=== PATIENT | female | born 1965 | race Caucasian/White ===

== ENCOUNTER 2019-11-14 13:26 | Outpatient (CLI) | payer OTHER, SELFPAY ==
--- NOTE | 2019-11-18 10:05 | ONC CON_ITS ---
Dr. Hayes New Patient Note Patient: Vicki Cain Unit #: [id number]: 1965 Dicatated By: Philly Hayes M.D.Date of Visit: Nov 14, 2019 Onc MED New Patient/Consult Referring Physician: Referred Self History of Present Illness: Ms. Vicki Cain, is a 54-year-old female with a history of neuroendocrine tumor diagnosed on September 24, 2017 per liver biopsy subsequently underwent fine-needle aspiration of pancreatic tail mass seen as incidental finding on MRI scan of spine done for chronic back pain. 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 daily and within few days she developed extensive skin rash, everolimus was put on hold and she was treated symptomatically with steroids and antihistaminic with that her rash improved, later on she was started on reduced dose everolimus 5 mg p.o. daily, which she tolerated well without any toxicity including skin rash till September 2019, at that time she removed from [place] to [facility]. And during this time patient ran out of her prescription but she had bottle of previously prescribed everolimus 10 mg, while waiting for establishing care here in [place], patient started taking everolimus 10 mg p.o. daily and should took it for 3 weeks as recommended earlier e.g. 3 weeks on 1 week off, on last day of 3-week course of everolimus 10 mg p.o. daily on September 29, 2019,, she developed skin rash again and this time she noted her everolimus was, in fact, . With symptomatic treatment her rash improved but some left under her breast, now is improving too. Patient denies any shortness of breath during this skin reaction but did notice blisters in her mouth. Patient denies any shortness of breath, wheezing, or skin rash, or diarrhea she denies smoking but drinks alcohol occasionally.. Denies any weight loss, denies any nausea or vomiting denies any headaches blurred vision double vision, denies any melena or hematochezia, denies any jaundice. Past Medical History: Ms. Cain's medical history consists of arthritis, degenerative disease of the spine, migraine headaches, and postmenopausal. Past Surgical History: Ms. Cain's surgical/procedural history consists of hysterectomy and left shoulder repair. Medications: Afinitor 1 Tablet (of 5 mg) Oral q 3 weeks, ALPRAZolam 1 Tablet (of 0.5 mg) Oral b.i.d. PRN, Citalopram Hydrobromide 1 Tablet (of 40 mg) Oral daily, Magnesium 1 Capsule (of 500 mg) Oral daily, Rizatriptan Benzoate 1 Tablet (of 10 mg) Oral daily, Rosuvastatin Calcium 1 Tablet (of 20 mg) Oral daily, Super B-50 Complex 1 Capsule Oral daily, valACYclovir HCl 1 Tablet (of 1 g) Oral b.i.d. Allergies: HYDROcodone-Acetaminophen, oxyCODONE HCl, Sulfa Antibiotics, and traMADol HCl. Social History: Ms. Cain is and she is an unknown. Ms. Cain quit smoking 30 years ago but had smoked for 1 year. She is a former drinker. Ms. Cain reports the following support systems: lives with spouse, significant other, family, or friends, lives in own house, supportive family/friends willing to assist with needs, and adequate transportation available for expected visits. Her diet consists of regular meals. She indicates her activity level as: regular exercise. Family History: Ms. Cain's mother is alive. Ms. Cain's father at age 65: lung cancer. Ms. Cain's maternal grandmother is : rectal cancer. Review Of Symptoms: Constitutional - Appetite is good and weight has increased. No fever, night sweats. Positive for hot flashes. Energy level is fair, ENMT - No sinus congestion/drainage. No mouth sores. No sore throat or difficulty swallowing, Hematologic/Lymphatic - No abnormal bruising or bleeding, Respiratory - Occasional shortness of breath. No cough. No pleuritic pain or hemoptysis, Cardiovascular - No angina pain. No palpitations, Gastrointestinal - No nausea or vomiting. No heartburn or acid reflux. Positive for diarrhea, no constipation. No blood in the stool or black stools, Genitourinary (F) - No dysuria or hematuria. No urinary frequency. No urgency or incontinence, Musculoskeletal - Positive for joint and back pain, Neurologic - Positive for headache, no dizziness. No numbness or tingling. No other focal neurologic symptoms, Psychiatric - Positive for anxiety. Vital Signs: Performed on Nov 14, 2019 13:55: 0, 37.16 (HIGH), 1.78 sq.m, 59.00 in, 97 %, 98 /min, 24 /min, 105/70 mm(hg), 98.6 F, and 184.0 lbs (HIGH). Performance Status: 0 - Fully active, able to carry on all predisease activities without restrictions. (ECOG) Physical Examination: ENMT - No mouth sores, no thrush, no jaundice, Respiratory - Lungs are clear, Cardiovascular - Regular rate and rhythm of heart, Abdomen - Soft, bowel sounds present, Extremities - No visible edema. Lab/Imaging: Most recent lab results are not available for this patient. 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 daily in December 2017, patient developed severe skin rash, which was treated with symptomatically with steroid and antihistaminic followed by reduced dose everolimus 5 mg p.o. daily without any problem till September 2019, when she moved to [place], [place] from [place], during that time, patient ran out of prescription for everolimus 5 mg p.o. daily but had bottle of previously prescribed everolimus 10 mg, which she took for 3 weeks till September 28, 2017 when she developed severe skin rash and mouth sores but no shortness of breath, later on patient realized her everolimus was , she was treated symptomatically with steroid and antihistaminic responded well.^ ]Follow-up PET scan done on January 20, 2019 showed unchanged FDG avid pancreatic tail mass, unchanged multiple bilobar hepatic metastasis. 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 daily 3 weeks on 1 week off and established intolerance to everolimus 10 mg p.o. daily. Being a young patient, no significant comorbidity, we would explore clinical trial if available so we will refer her to neuroendocrine oncology at [facility] for evaluation for clinical trial, if available. In the meantime we will continue to hold everolimus. Indicates there is no clinical trial available , in that case we will consider restarting her on everolimus 5 mg p.o. daily 3 weeks on 1 week off unless neuroendocrine oncology clinic has other suggestions. If skin rash under her bilateral breast continue to persist then will refer her to dermatology for evaluation. Patient return to clinic 1 week after her visit to [place]. Signed By: Philly Hayes M.D. <<Signature on File>>
== END 2019-11-14 13:27 | disposition home or self-care (01) ==
LOC: ONCMED 13:35
PROVIDERS: Visit Provider Internal Medicine Hematology & Oncology
DX: C7A.8 Other malignant neuroendocrine tumors (principal); C25.4 Malignant neoplasm of endocrine pancreas; C7B.8 Other secondary neuroendocrine tumors; R21 Rash and other nonspecific skin eruption; Z87.891 Personal history of nicotine dependence; Z79.899 Other long term (current) drug therapy
CPT/HCPCS: 99203

== ENCOUNTER → 2019-12-12 13:54 | Outpatient (BNVA) | payer OTHER, SELFPAY | PROVIDERS: Referring Provider Internal Medicine Hematology & Oncology; Visit Provider Dermatology | DX: C7A.8 Other malignant neuroendocrine tumors (principal); R21 Rash and other nonspecific skin eruption | CPT/HCPCS: 11104; 88304; 88305; 88312; 88341; 88342; 99203; 99204 ==

== ENCOUNTER → 2019-12-29 15:52 | Outpatient (BNVA) | payer OTHER, SELFPAY | PROVIDERS: Visit Provider Dermatology | DX: L27.0 Generalized skin eruption due to drugs and medicaments taken internally (principal); Z48.02 Encounter for removal of sutures | CPT/HCPCS: 99213 ==

== ENCOUNTER 2020-12-28 08:18 | Outpatient (CLI) | payer MEDICARE, SELFPAY ==
[2020-12-28 09:25] LABS: Basophils # 0.1 10^3/uL (0.0-0.1); Basophils % 1.6 %; Eosinophils # 0.4 10^3/uL (0.0-0.8); Eosinophils % 7.1 %; Hematocrit 43.9 % (37.0-47.0); Lymphocytes # 1.3 10^3/uL (0.8-4.8); Lymphocytes % 26.4 %; Mean Corpuscular HGB Conc 31.9 g/dL (30.0-36.0); Mean Corpuscular Hemoglobin 27.5 pg (28.0-34.0); Mean Corpuscular Volume 86.1 fl (81-99); Mean Platelet Volume 9.1 fL (7.4-10.4); Monocytes # 0.4 10^3/uL (0.2-0.9); Monocytes % 8.9 %; Neutrophils # 2.73 10^3/uL (1.8-7.7); Neutrophils % 55.6 %; Nucleated Red Blood Cells % 0 %; Platelet Count 414 10^3/cmm (130-400); Red Cell Distribution Width 16.6 % (12.1-15.1); White Blood Count 4.9 10^3/uL (4.0-10.0)
[2020-12-28 09:26] LABS: Alanine Aminotransferase 11 U/L (0-33); Alkaline Phosphatase 172 IU/L (35-105); Anion Gap 16.3 (5-19); Aspartate Amino Transferase 20 U/L (0-32); Blood Urea Nitrogen 12 mg/dL (6-20); Carbon Dioxide 23 mmol/L (22-29); Chloride 102 mmol/L (98-107); Globulin 3.2 g/dL (1.3-4.6); Glomerular Filtration Rate 104.2 mL/min (90-130); Glucose 91 mg/dL (65-115); Osmolality Calculated 283 mOsm/kg (285-295); Potassium 4.3 mmol/L (3.5-5.1); Sodium 137 mmol/L (136-145); Total Bilirubin 0.3 mg/dL (0.15-1.2); Total Protein 7.2 g/dL (6.6-8.7)
--- NOTE | 2020-12-28 10:27 | ONC FU_ITS ---
Dr. Hayes follow up note Patient: Vicki Cain Unit #: [id number]: 1965 Dicatated By: Philly Hayes M.D.Date of Visit:Dec 28, 2020 Onc Med Follow-up/Prog Note History of Present Illness: Ms. Vicki Cain, is a 55-year-old female with a history of neuroendocrine tumor diagnosed on September 24, 2017 per liver biopsy subsequently underwent fine-needle aspiration of pancreatic tail mass seen as incidental finding on MRI scan of spine done for chronic back pain. 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 daily and within few days she developed extensive skin rash, everolimus was put on hold and she was treated symptomatically with steroids and antihistaminic with that her rash improved, later on she was started on reduced dose everolimus 5 mg p.o. daily, which she tolerated well without any toxicity including skin rash till September 2019, at that time she removed from [place] to [facility]. And during this time patient ran out of her prescription but she had bottle of previously prescribed everolimus 10 mg, while waiting for establishing care here in [place], patient started taking everolimus 10 mg p.o. daily and should took it for 3 weeks as recommended earlier e.g. 3 weeks on 1 week off, on last day of 3-week course of everolimus 10 mg p.o. daily on September 29, 2019,, she developed skin rash again and this time she noted her everolimus was, in fact, . With symptomatic treatment her rash improved but some left under her breast, now is improving too. Patient denies any shortness of breath during this skin reaction but did notice blisters in her mouth. Patient denies any shortness of breath, wheezing, or skin rash, or diarrhea she denies smoking but drinks alcohol occasionally.. Denies any weight loss, denies any nausea or vomiting denies any headaches blurred vision double vision, denies any melena or hematochezia, denies any jaundice. Patient was referred to [facility] for evaluation for clinical trial, patient was seen on February 28, 2020, at that patient underwent dotatate CT PET scan as well as 24-hour urine for 5-HIAA, serotonin and chromogranin level and NexGen sequencing, she was advised to continue with everolimus 5 mg p.o. daily 3 weeks on 1 week off, As per patient no clinical trial was available at that time Came for follow-up, denies any specific complaints, no fever chills, no nausea or vomiting, no diarrhea or constipation, tolerating everolimus 5 mg p.o. daily 3 weeks on 1 week off and she is starting next 3 weekly cycle on coming Thursday., Denies any facial flushing denies any bronchial wheezing denies any diarrhea denies any abdominal pain, as per patient she went back to [facility] quite a few times and eventually, because of convenience decided to come back and follow-up with us and will go back to neuroendocrine clinic at [facility] on as-needed basis Medications: Afinitor 1 Tablet (of 5 mg) Oral q 3 weeks, ALPRAZolam 1 Tablet (of 0.5 mg) Oral b.i.d. PRN, Citalopram Hydrobromide 1 Tablet (of 40 mg) Oral daily, Magnesium 1 Capsule (of 500 mg) Oral daily, Rizatriptan Benzoate 1 Tablet (of 10 mg) Oral daily, Rosuvastatin Calcium 1 Tablet (of 20 mg) Oral daily, Super B-50 Complex 1 Capsule Oral daily, valACYclovir HCl 1 Tablet (of 1 g) Oral b.i.d. Allergies: HYDROcodone-Acetaminophen, oxyCODONE HCl, Sulfa Antibiotics, and traMADol HCl. Review of Systems: Review of Systems is not available for this patient. Vital Signs: Vitals are not available for this patient. Performance Status: 0 - Fully active, able to carry on all predisease activities without restrictions. (ECOG) Physical Examination: ENMT - No mouth sores, no thrush, no jaundice, Respiratory - Lungs are clear to auscultation, Cardiovascular - Regular rate and rhythm of heart, Abdomen - Soft, bowel sounds present, Extremities - No visible edema. Lab/Imaging: Most recent lab results are not available for this patient. 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 daily in December 2017, patient developed severe skin rash, which was treated with symptomatically with steroid and antihistaminic followed by reduced dose everolimus 5 mg p.o. daily without any problem till September 2019, when she moved to [place], [place] from [place], during that time, patient ran out of prescription for everolimus 5 mg p.o. daily but had bottle of previously prescribed everolimus 10 mg, which she took for 3 weeks till September 28, 2017 when she developed severe skin rash and mouth sores but no shortness of breath, later on patient realized her everolimus was , she was treated symptomatically with steroid and antihistaminic responded well. Plan: Discussed with patient regarding her labs white blood count 4.9 hemoglobin 14 hematocrit 43.9 platelets 414,000 CMP within normal limits Clinically, patient doing well with no new signs symptoms, tolerating everolimus 5 mg p.o. daily 3 weeks on 1 week off, patient is starting her next 3 weekly cycle with everolimus 5 mg p.o. daily on coming Thursday, in that case she will return to clinic in 1 month with CBC and CMP, in the meantime will obtain copy of her records from [facility] for review As far as chronic bilateral hip pain and knee pain and right posterior mid back pain is concerned, patient says with THC and Tylenol arthritis, it is under control. Signed By: Philly Hayes M.D. <<Signature on File>>
== END 2020-12-28 08:19 | disposition home or self-care (01) ==
LOC: ONCMED 08:23
PROVIDERS: PCP Family Medicine; Visit Provider Internal Medicine Hematology & Oncology
DX: C7A.8 Other malignant neuroendocrine tumors (principal); G89.29 Other chronic pain; M19.09 Primary osteoarthritis, other specified site; Z79.899 Other long term (current) drug therapy
CPT/HCPCS: 36415; 80053; 85025; 99214

== ENCOUNTER 2021-02-01 09:59 | Outpatient (CLI) | payer MEDICARE, SELFPAY ==
[2021-02-01 11:00] LABS: Basophils # 0.1 10^3/uL (0.0-0.1); Basophils % 1.3 %; Eosinophils # 0.2 10^3/uL (0.0-0.8); Eosinophils % 3.5 %; Hematocrit 40.8 % (37.0-47.0); Hemoglobin 13.4 g/dL (11.5-15.3); Lymphocytes # 1.4 10^3/uL (0.8-4.8); Lymphocytes % 30.7 %; Mean Corpuscular HGB Conc 32.8 g/dL (30.0-36.0); Mean Corpuscular Hemoglobin 28.2 pg (28.0-34.0); Mean Corpuscular Volume 85.7 fl (81-99); Mean Platelet Volume 9.3 fL (7.4-10.4); Monocytes # 0.4 10^3/uL (0.2-0.9); Monocytes % 9.1 %; Neutrophils # 2.54 10^3/uL (1.8-7.7); Neutrophils % 54.8 %; Nucleated Red Blood Cells % 0 %; Platelet Count 359 10^3/cmm (130-400); Red Blood Count 4.76 10^6/uL (4.1-5.3); Red Cell Distribution Width 15.2 % (12.1-15.1); White Blood Count 4.6 10^3/uL (4.0-10.0)
[2021-02-01 11:21] LABS: Alanine Aminotransferase 14 U/L (0-33); Albumin Level 3.9 g/dL (3.5-5.2); Alkaline Phosphatase 157 IU/L (35-105); Aspartate Amino Transferase 23 U/L (0-32); Blood Urea Nitrogen 11 mg/dL (6-20); Calcium 9.7 mg/dL (8.5-10.5); Carbon Dioxide 25 mmol/L (22-29); Chloride 102 mmol/L (98-107); Globulin 2.7 g/dL (1.3-4.6); Glomerular Filtration Rate 104.2 mL/min (90-130); Glucose 100 mg/dL (65-115); Osmolality Calculated 285 mOsm/kg (285-295); Sodium 138 mmol/L (136-145); Total Bilirubin 0.2 mg/dL (0.15-1.2); Total Protein 6.6 g/dL (6.6-8.7)
--- NOTE | 2021-02-04 08:46 | ONC FU_ITS ---
Dr. Hayes follow up note Patient: Vicki Cain Unit #: [id number]: 1965 Dicatated By: Philly Hayes M.D.Date of Visit:Feb 01, 2021 Onc Med Follow-up/Prog Note History of Present Illness: Ms. Vicki Cain, is a 55-year-old female with a history of neuroendocrine tumor diagnosed on September 24, 2017 per liver biopsy subsequently underwent fine-needle aspiration of pancreatic tail mass seen as incidental finding on MRI scan of spine done for chronic back pain. 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 daily and within few days she developed extensive skin rash, everolimus was put on hold and she was treated symptomatically with steroids and antihistaminic with that her rash improved, later on she was started on reduced dose everolimus 5 mg p.o. daily, which she tolerated well without any toxicity including skin rash till September 2019, at that time she removed from [place] to [facility]. And during this time patient ran out of her prescription but she had bottle of previously prescribed everolimus 10 mg, while waiting for establishing care here in [place], patient started taking everolimus 10 mg p.o. daily and should took it for 3 weeks as recommended earlier e.g. 3 weeks on 1 week off, on last day of 3-week course of everolimus 10 mg p.o. daily on September 29, 2019,, she developed skin rash again and this time she noted her everolimus was, in fact, . With symptomatic treatment her rash improved but some left under her breast, now is improving too. Patient denies any shortness of breath during this skin reaction but did notice blisters in her mouth. Patient denies any shortness of breath, wheezing, or skin rash, or diarrhea she denies smoking but drinks alcohol occasionally.. Denies any weight loss, denies any nausea or vomiting denies any headaches blurred vision double vision, denies any melena or hematochezia, denies any jaundice. Patient was referred to [facility] for evaluation for clinical trial, patient was seen on February 28, 2020, at that patient underwent dotatate CT PET scan as well as 24-hour urine for 5-HIAA, serotonin and chromogranin level and NexGen sequencing, she was advised to continue with everolimus 5 mg p.o. daily 3 weeks on 1 week off, As per patient no clinical trial was available at that time Came for follow-up, denies any specific complaints, no fever chills, no nausea or vomiting, no diarrhea constipation, no melena or hematochezia, no hemoptysis or hematemesis, no facial flushing, no bronchial wheezing, no abdominal pain, no jaundice, no skin rash, tolerating everolimus 5 mg p.o. daily for 3 weeks on 1 week off and patient started her this cycle last Thursday. Medications: Afinitor 1 Tablet (of 5 mg) Oral q 3 weeks, ALPRAZolam 1 Tablet (of 0.5 mg) Oral b.i.d. PRN, Citalopram Hydrobromide 1 Tablet (of 40 mg) Oral daily, Magnesium 1 Capsule (of 500 mg) Oral daily, Rizatriptan Benzoate 1 Tablet (of 10 mg) Oral daily, Rosuvastatin Calcium 1 Tablet (of 20 mg) Oral daily, Super B-50 Complex 1 Capsule Oral daily, valACYclovir HCl 1 Tablet (of 1 g) Oral b.i.d. Allergies: HYDROcodone-Acetaminophen, oxyCODONE HCl, Sulfa Antibiotics, and traMADol HCl. Review of Systems: Review of Systems is not available for this patient. Vital Signs: Performed on Feb 01, 2021 12:04 Height - 59.00 in Weight - 187.4 lbs (HIGH) BSA - 1.79 sq.m BMI - 37.85 (HIGH) Temperature - 97.0 F (LOW) Pulse - 86 /min Respiration - 16 /min BP - 125/81 mm(hg) O2 Sat - 98 % Pain - 7 Fatigue - 5 Performance Status: 0 - Fully active, able to carry on all predisease activities without restrictions. (ECOG) Physical Examination: ENMT - . No mouth sores, no thrush, no jaundice, Respiratory - Lungs are clear to auscultation, Cardiovascular - Regular rate and rhythm of heart, Abdomen - Soft, bowel sounds present, Extremities - No visible edema. Lab/Imaging: Most recent lab results are not available for this patient. 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 daily in December 2017, patient developed severe skin rash, which was treated with symptomatically with steroid and antihistaminic followed by reduced dose everolimus 5 mg p.o. daily without any problem till September 2019, when she moved to [place], [place] from [place], during that time, patient ran out of prescription for everolimus 5 mg p.o. daily but had bottle of previously prescribed everolimus 10 mg, which she took for 3 weeks till September 28, 2017 when she developed severe skin rash and mouth sores but no shortness of breath, later on patient realized her everolimus was , she was treated symptomatically with steroid and antihistaminic responded well. Plan: Discussed with patient regarding her labs white blood count 4.6 hemoglobin 13.4 hematocrit 40.8 platelets 359,000 CMP within normal limits Clinically, patient doing well with no new signs symptom except chronic shoulder hip pain which is under control with THC and Tylenol arthritis. Patient is tolerating everolimus 5 mg p.o. daily for 3 weeks on 1 week off, as far as her metastatic neuroendocrine tumor is concerned, the last scan she had was done in March 2020 at [facility], at this point, we will consider other follow-up octreotide scan to assess disease response so patient will return to clinic in 1 month with CBC CMP and follow-up octreotide scan which will be done at [facility] for better comparison Signed By: Philly Hayes M.D. <<Signature on File>>
== END 2021-02-01 10:00 | disposition home or self-care (01) ==
PROVIDERS: PCP Family Medicine; Visit Provider Internal Medicine Hematology & Oncology
DX: C7A.1 Malignant poorly differentiated neuroendocrine tumors (principal); M16.0 Bilateral primary osteoarthritis of hip; M19.012 Primary osteoarthritis, left shoulder; M19.011 Primary osteoarthritis, right shoulder; Z79.899 Other long term (current) drug therapy; Z92.21 Personal history of antineoplastic chemotherapy
CPT/HCPCS: 36415; 80053; 85025; 99214

== ENCOUNTER 2021-03-19 13:46 | Outpatient (CLI) | payer MEDICARE, SELFPAY ==
[2021-03-19 14:36] LABS: Basophils # 0.1 10^3/uL (0.0-0.1); Basophils % 1.1 %; Eosinophils # 0.3 10^3/uL (0.0-0.8); Hematocrit 41.7 % (37.0-47.0); Hemoglobin 13.9 g/dL (11.5-15.3); Lymphocytes # 1.9 10^3/uL (0.8-4.8); Lymphocytes % 21.4 %; Mean Corpuscular HGB Conc 33.3 g/dL (30.0-36.0); Mean Corpuscular Hemoglobin 28.5 pg (28.0-34.0); Mean Corpuscular Volume 85.6 fl (81-99); Mean Platelet Volume 9.1 fL (7.4-10.4); Monocytes # 0.8 10^3/uL (0.2-0.9); Monocytes % 9.3 %; Neutrophils # 5.66 10^3/uL (1.8-7.7); Neutrophils % 64.9 %; Nucleated Red Blood Cells % 0 %; Platelet Count 445 10^3/cmm (130-400); Red Blood Count 4.87 10^6/uL (4.1-5.3); Red Cell Distribution Width 15.4 % (12.1-15.1); White Blood Count 8.7 10^3/uL (4.0-10.0)
[2021-03-19 15:23] LABS: Alanine Aminotransferase 7 U/L (0-33); Albumin Level 4.3 g/dL (3.5-5.2); Alkaline Phosphatase 179 IU/L (35-105); Anion Gap 15.4 (5-19); Aspartate Amino Transferase 14 U/L (0-32); Blood Urea Nitrogen 11 mg/dL (6-20); Calcium 9.6 mg/dL (8.5-10.5); Carbon Dioxide 27 mmol/L (22-29); Chloride 106 mmol/L (98-107); Globulin 2.5 g/dL (1.3-4.6); Glomerular Filtration Rate 74.7 mL/min (90-130); Glucose 84 mg/dL (65-115); Osmolality Calculated 297 mOsm/kg (285-295); Potassium 4.4 mmol/L (3.5-5.1); Sodium 144 mmol/L (136-145); Total Bilirubin 0.2 mg/dL (0.15-1.2); Total Protein 6.8 g/dL (6.6-8.7)
--- NOTE | 2021-03-19 16:37 | ONC FU_ITS ---
Dr. Hayes follow up note Patient: Vicki Cain Unit #: [id number]: 1965 Dicatated By: Philly Hayes M.D.Date of Visit:Mar 19, 2021 Onc Med Follow-up/Prog Note History of Present Illness: Ms. Vicki Cain, is a 55-year-old female with a history of neuroendocrine tumor diagnosed on September 24, 2017 per liver biopsy subsequently underwent fine-needle aspiration of pancreatic tail mass seen as incidental finding on MRI scan of spine done for chronic back pain. 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 daily and within few days she developed extensive skin rash, everolimus was put on hold and she was treated symptomatically with steroids and antihistaminic with that her rash improved, later on she was started on reduced dose everolimus 5 mg p.o. daily, which she tolerated well without any toxicity including skin rash till September 2019, at that time she removed from [place] to [facility]. And during this time patient ran out of her prescription but she had bottle of previously prescribed everolimus 10 mg, while waiting for establishing care here in [place], patient started taking everolimus 10 mg p.o. daily and should took it for 3 weeks as recommended earlier e.g. 3 weeks on 1 week off, on last day of 3-week course of everolimus 10 mg p.o. daily on September 29, 2019,, she developed skin rash again and this time she noted her everolimus was, in fact, . With symptomatic treatment her rash improved but some left under her breast, now is improving too. Patient denies any shortness of breath during this skin reaction but did notice blisters in her mouth. Patient denies any shortness of breath, wheezing, or skin rash, or diarrhea she denies smoking but drinks alcohol occasionally.. Denies any weight loss, denies any nausea or vomiting denies any headaches blurred vision double vision, denies any melena or hematochezia, denies any jaundice. Patient was referred to [facility] for evaluation for clinical trial, patient was seen on February 28, 2020, at that patient underwent dotatate CT PET scan as well as 24-hour urine for 5-HIAA, serotonin and chromogranin level and NexGen sequencing, she was advised to continue with everolimus 5 mg p.o. daily 3 weeks on 1 week off, As per patient no clinical trial was available at that time Came for follow-up, denies any specific complaints, no fever chills, no nausea or vomiting, no diarrhea constipation, no hot flashes or facial flushing, no bronchial wheezing, no diarrhea, no abdominal pain. Patient was scheduled for octreotide scan at [facility] for follow-up but her insurance declined the coverage. Patient is tolerating everolimus well otherwise Medications: Afinitor 1 Tablet (of 5 mg) Oral q 3 weeks, ALPRAZolam 1 Tablet (of 0.5 mg) Oral b.i.d. PRN, Citalopram Hydrobromide 1 Tablet (of 40 mg) Oral daily, Magnesium 1 Capsule (of 500 mg) Oral daily, Rizatriptan Benzoate 1 Tablet (of 10 mg) Oral daily, Rosuvastatin Calcium 1 Tablet (of 20 mg) Oral daily, Super B-50 Complex 1 Capsule Oral daily, valACYclovir HCl 1 Tablet (of 1 g) Oral b.i.d. Allergies: HYDROcodone-Acetaminophen, oxyCODONE HCl, Sulfa Antibiotics, and traMADol HCl. Review of Systems: Review of Systems is not available for this patient. Vital Signs: Performed on Mar 19, 2021 16:19 Height - 59.00 in Weight - 187 lbs (LOW) BSA - 1.79 sq.m BMI - 37.77 (HIGH) Temperature - 96.6 F (LOW) Pulse - 83 /min Respiration - 18 /min BP - 114/78 mm(hg) O2 Sat - 98 % Pain - 6 Fatigue - 8 Performance Status: 0 - Fully active, able to carry on all predisease activities without restrictions. (ECOG) Physical Examination: ENMT - No mouth sores, no thrush, no jaundice, Respiratory - Lungs are clear to auscultation, Cardiovascular - Regular rate and rhythm of heart, Abdomen - Soft, bowel sounds present, Extremities - No visible edema. Lab/Imaging: Most recent lab results are not available for this patient. 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 daily in December 2017, patient developed severe skin rash, which was treated with symptomatically with steroid and antihistaminic followed by reduced dose everolimus 5 mg p.o. daily without any problem till September 2019, when she moved to [place], [place] from [place], during that time, patient ran out of prescription for everolimus 5 mg p.o. daily but had bottle of previously prescribed everolimus 10 mg, which she took for 3 weeks till September 28, 2017 when she developed severe skin rash and mouth sores but no shortness of breath, later on patient realized her everolimus was , she was treated symptomatically with steroid and antihistaminic responded well. Plan: Discussed with patient regarding her labs white blood count 8.7 hemoglobin 13.9 hematocrit 41.7 platelets 445,000 CMP within normal limits next except alk phos which is 179 and stable Clinically, patient is doing well with no new signs symptoms, on everolimus, tolerating well, follow-up octreotide scan was recommended but her insurance declined, in that case we will consider CT scan of chest abdomen, hopefully insurance will cover and compare that with her dotatate scan done at [facility] in 2019 and also scan done in [address] aKur in [place], patient has disc she will bring it for comparison and will also obtain scan from [facility] for comparison with CT scan chest abdomen, which will be scheduled in 2 months. Patient return to clinic in 2 months with follow-up CT scan of chest abdomen and CMP. In the meantime patient will continue with everolimus 5 mg p.o. daily Signed By: Philly Hayes M.D. <<Signature on File>>
== END 2021-03-19 13:47 | disposition home or self-care (01) ==
LOC: ONCMED 13:48
PROVIDERS: PCP Family Medicine; Visit Provider Internal Medicine Hematology & Oncology
DX: C7A.098 Malignant carcinoid tumors of other sites (principal); C7B.02 Secondary carcinoid tumors of liver; Z79.818 Long term (current) use of other agents affecting estrogen receptors and estrogen levels
CPT/HCPCS: 36415; 80053; 85025; 99214

== ENCOUNTER → 2021-09-03 13:56 | Outpatient (BNVA) | payer MEDICARE, SELFPAY | PROVIDERS: PCP Family Medicine; Visit Provider Family Medicine | DX: C25.9 Malignant neoplasm of pancreas, unspecified (principal); F41.1 Generalized anxiety disorder; R11.0 Nausea; B00.9 Herpesviral infection, unspecified; E78.49 Other hyperlipidemia; C25.2 Malignant neoplasm of tail of pancreas; R00.1 Bradycardia, unspecified | CPT/HCPCS: 80053; 80061; 85025 ==

== ENCOUNTER → 2021-11-29 17:21 | Outpatient (BNVA) | payer MEDICARE, SELFPAY | PROVIDERS: PCP Family Medicine; Visit Provider Emergency Medicine | DX: M25.511 Pain in right shoulder (principal) | CPT/HCPCS: 73030 ==

== ENCOUNTER → 2022-03-26 10:34 | Outpatient (BNVA) | payer MEDICARE, SELFPAY | PROVIDERS: PCP Family Medicine; Visit Provider Family Medicine | DX: F41.1 Generalized anxiety disorder (principal); B00.9 Herpesviral infection, unspecified; C25.9 Malignant neoplasm of pancreas, unspecified; C25.2 Malignant neoplasm of tail of pancreas; G43.709 Chronic migraine without aura, not intractable, without status migrainosus; R11.0 Nausea; F43.21 Adjustment disorder with depressed mood | CPT/HCPCS: 80053; 85025 ==

== ENCOUNTER 2022-05-06 12:25 | Outpatient (RCR) | payer MEDICARE, SELFPAY ==
[2022-05-06 14:30] LABS: Basophils # 0.1 10^3/uL (0.0-0.1); Basophils % 0.9 %; Eosinophils # 0.2 10^3/uL (0.0-0.8); Eosinophils % 2.9 %; Hematocrit 46.7 % (37.0-47.0); Hemoglobin 14.9 g/dL (11.5-15.3); Lymphocytes # 2.1 10^3/uL (0.8-4.8); Lymphocytes % 26.9 %; Mean Corpuscular HGB Conc 31.9 g/dL (30.0-36.0); Mean Corpuscular Hemoglobin 28.3 pg (28.0-34.0); Mean Corpuscular Volume 88.6 fl (81-99); Mean Platelet Volume 9.5 fL (7.4-10.4); Monocytes # 0.4 10^3/uL (0.2-0.9); Monocytes % 5.2 %; Neutrophils # 5.03 10^3/uL (1.8-7.7); Neutrophils % 63.8 %; Nucleated Red Blood Cells % 0 %; Platelet Count 379 10^3/cmm (130-400); Red Blood Count 5.27 10^6/uL (4.1-5.3); White Blood Count 7.9 10^3/uL (4.0-10.0)
[2022-05-06 14:48] LABS: Alanine Aminotransferase 11 U/L (0-33); Albumin Level 4.5 g/dL (3.5-5.2); Alkaline Phosphatase 192 U/L (35-105); Anion Gap 17.2 (5-19); Aspartate Amino Transferase 17 U/L (0-32); Blood Urea Nitrogen 10 mg/dL (6-20); Calcium 9.9 mg/dL (8.5-10.5); Carbon Dioxide 24 mmol/L (22-29); Chloride 101 mmol/L (98-107); Glomerular Filtration Rate 74.5 mL/min (90-130); Glucose 94 mg/dL (65-115); Osmolality Calculated 285 mOsm/kg (285-295); Potassium 4.2 mmol/L (3.5-5.1); Sodium 138 mmol/L (136-145); Total Bilirubin 0.2 mg/dL (0.15-1.2); Total Protein 7.5 g/dL (6.6-8.7)
[2022-05-09 22:55] LABS: Gastrin 16 pg/mL (< OR = 100)
[2022-05-11 13:50] LABS: Serotonin Whole Blood 95 ng/mL (56-244)
[2022-05-14 15:34] LABS: Chromogranin A LC/MS/MS 896 ng/mL (ADULTS: <311)
== END 2022-05-20 23:59 | disposition home or self-care (01) ==
LOC: ONCMED 12:25
PROVIDERS: PCP Family Medicine; Visit Provider Internal Medicine Hematology & Oncology
DX: C7A.8 Other malignant neuroendocrine tumors (principal); Z91.14 Patient's other noncompliance with medication regimen; M54.6 Pain in thoracic spine; G89.29 Other chronic pain; M54.50 Low back pain, unspecified
CPT/HCPCS: 36415; 80053; 82941; 84260; 85025; 86316; 99214

== ENCOUNTER → 2022-05-08 15:52 | Outpatient (BNVA) | payer MEDICARE, SELFPAY | PROVIDERS: PCP Family Medicine; Visit Provider Internal Medicine Hematology & Oncology | DX: C7A.8 Other malignant neuroendocrine tumors (principal) | CPT/HCPCS: 83497 ==

== ENCOUNTER 2022-05-20 07:51 | Outpatient (CLI) | payer MEDICARE, SELFPAY ==
--- NOTE | 2022-05-20 07:57 | NM_ITS ---
WS: [id number] NUCLEAR MEDICINE OCTREOSCAN INDICATION: Pancreatic cancer. History of metastatic pancreatic neuroendocrine tumor. TECHNIQUE: 6.1 mCi indium-111 Octreoscan with 4 hour and 24-hour whole body and planar imaging COMPARISON: Outside studies PET CT March 26, [address] chest abdomen pelvis 6 26,018 and 8 FINDINGS: Large bulky areas of hepatic uptake involving the RIGHT hepatic lobe with at least 3 large lesions. 2 largest lesions in the RIGHT hepatic lobe anteriorly and inferiorly. Additional lesion pos teriorly at the dome of the liver. Photopenic defect in the central RIGHT hepatic lobe likely due to prior treated lesion. Additional punctate areas of activity involving the pancreatic tail. 2 or 3 additional areas of punct ate uptake in the upper abdominal central mesenteric lymph nodes Normal activity in the LEFT kidney with 2 additional low-grade foci of uptake involving the LEFT hepa tic lobe posteriorly. Normal RIGHT kidney is not visualized but likely obscured by the enlarged RIGHT hepatic lobe. CT abdo men pelvis could be obtained for better anatomic evaluation NM/NM octreoscan body >2d [id number] IMPRESSION: 1. Bulky hepatic uptake involving the RIGHT hepatic lobe with 3 dominant lesio ns described above. Inferior RIGHT hepatic lobe lesion in the region of the kid isaiah which obscures the kidney activity. This can be further evaluated with CT a bdomen pelvis for better anatomic detail. 2. Additional punctate area of uptake involving the pancreatic tail 3. Smaller areas of low-grade activity involving the LEFT hepatic lobe posteri chi 4. 2 or 3 small punctate areas of uptake involving the central mesenteric lymp h nodes just caudal to the pancreatic tail. 5. No abnormal areas of uptake above the diaphragm or in the pelvis.
== END 2022-05-20 07:52 | disposition home or self-care (01) ==
LOC: RAD 07:52
PROVIDERS: PCP Family Medicine; Visit Provider Internal Medicine Hematology & Oncology
DX: C7A.8 Other malignant neuroendocrine tumors (principal)
CPT/HCPCS: 78804; A9570

== ENCOUNTER 2022-05-26 12:57 | Outpatient (CLI) | payer MEDICARE, SELFPAY ==
--- NOTE | 2022-05-26 13:00 | MR_ITS ---
WS: [id number] MRI LUMBAR SPINE WITH AND WITHOUT CONTRAST. HISTORY: Back pain, known pancreatic cancer with metastatic disease. COMPARISON: PET CT 03/26/2020 TECHNIQUE: Sagittal and axial multisequence imaging is submitted. MultiHance 18 mL. Normal lumbar alignment with no compression fractures or marrow edema. Disc spaces and vertebral body heights are well-preserved. Conus terminates normally at L1-2 disc level. Liver is enlarged. Patient has known metastatic lesions within the liver. L1-L2: Normal. L2-L3: Mild annular disc bulging with ligamentum flavum and facet arthritis. Mild foraminal stenosis. L3-L4: Mild annular disc bulging with mild central and subarticular recess encroachment. L4-L5: Mild annular disc bulging with moderate ligamentum flavum and facet arthritis. Fluid in the fa cet joints. Mild central and bilateral subarticular recess stenosis. Mild foraminal stenosis, RIGHT g reater than LEFT. Disc is asymmetrically bulging and eccentric to the RIGHT. L5-S1: No stenosis. No enhancing bone lesions or soft tissue masses are identified. No nodularity or enhancement of the c onus. Visualized retroperitoneum is negative. There is mild enhancement involving the facet joints at L4-5 most consistent with a synovitis. MR/MR lumbar spine wo/w con [id number] IMPRESSION: 1. No MRI evidence for metastatic disease to the lumbar spine. 2. Mild central and subarticular recess stenosis L3-4. 3. Mild central and bilateral subarticular recess to severe L4-5. 4. Facet joint arthritis with enhancement consistent with synovitis at L4-5. 5. Mild foraminal stenosis at L2-3.
--- NOTE | 2022-05-26 13:45 | MR_ITS ---
WS: [id number] MRI THORACIC SPINE with and without contrast. HISTORY: back pain, known pancreatic cancer with metastatic disease. COMPARISON: Prior PET/CT 03/26/2020. Octreotide scan 05/20/2022 TECHNIQUE: Multiplanar sequences are performed in sagittal and axial planes. Postcontrast imaging wit h MultiHance 18 mL IV. Normal thoracic alignment. Disc spaces and vertebral body heights are normal. STIR imaging is normal. No areas of edema. No soft tissue masses or abnormal enhancement. T1-2: Normal. T2-3: Mild disc bulging. No stenosis. T3-4: Mild facet arthritis. No high-grade stenosis. T4-5: Normal. T5-6: Normal. T6-7: Mild ligamentum flavum and facet arthritis. T7-8: Mild facet arthritis. T8-9: Moderate facet joint arthritis causing mild bilateral foraminal stenosis. T9-10: Mild foraminal narrowing. T10-11: Mild bilateral facet joint arthritis and foraminal narrowing. T11-12: Mild bilateral facet arthritis. Postcontrast images are negative for metastatic disease to the thoracic spine. MR/MR thoracic spine wo/w [id number] IMPRESSION: 1. No metastatic bone lesions thoracic spine. 2. No enhancement involving the thoracic cord or conus. 3. Known metastatic liver disease. 4. No high-grade central or foraminal stenosis thoracic spine. Facet joint art hritis as described above.
[2022-05-26] MEDS: gadobenate dimeglumine 20 mL vial IV (14:26)
== END 2022-05-26 12:58 | disposition home or self-care (01) ==
LOC: RAD 13:10
PROVIDERS: PCP Family Medicine; Visit Provider Internal Medicine Hematology & Oncology
DX: M54.50 Low back pain, unspecified (principal); C25.9 Malignant neoplasm of pancreas, unspecified
CPT/HCPCS: 72157; 72158; A9577

== ENCOUNTER 2022-06-27 08:23 | Oncology outpatient (recurring) (ONCR) | payer MEDICARE, SELFPAY ==
[2022-06-27 09:16] LABS: Alanine Aminotransferase 8 U/L (0-33); Alkaline Phosphatase 196 U/L (35-105); Anion Gap 14.1 (5-19); Aspartate Amino Transferase 14 U/L (0-32); Blood Urea Nitrogen 10 mg/dL (6-20); Calcium 9.8 mg/dL (8.5-10.5); Carbon Dioxide 22 mmol/L (22-29); Chloride 101 mmol/L (98-107); Globulin 3.1 g/dL (1.3-4.6); Glomerular Filtration Rate 103.8 mL/min (90-130); Glucose 103 mg/dL (65-115); Osmolality Calculated 275 mOsm/kg (285-295); Potassium 4.1 mmol/L (3.5-5.1); Sodium 133 mmol/L (136-145); Total Bilirubin 0.2 mg/dL (0.15-1.2); Total Protein 7.1 g/dL (6.6-8.7)
== END 2022-07-18 23:59 | disposition home or self-care (01) ==
PROVIDERS: PCP Family Medicine; Visit Provider Internal Medicine Hematology & Oncology
DX: C7A.098 Malignant carcinoid tumors of other sites (principal); C7B.01 Secondary carcinoid tumors of distant lymph nodes; C7B.04 Secondary carcinoid tumors of peritoneum; C7B.09 Secondary carcinoid tumors of other sites; M51.35 Other intervertebral disc degeneration, thoracolumbar region; M48.05 Spinal stenosis, thoracolumbar region; Z79.899 Other long term (current) drug therapy; Z87.891 Personal history of nicotine dependence; D3A.098 Benign carcinoid tumors of other sites; M25.551 Pain in right hip; M25.552 Pain in left hip; D3A.8 Other benign neuroendocrine tumors
CPT/HCPCS: 36415; 73523; 80053; 99214

== ENCOUNTER 2022-06-27 11:04 | Outpatient (CLI) | payer MEDICARE, SELFPAY ==
--- NOTE | 2022-06-27 11:36 | XR_ITS ---
WS: [id number] AP pelvis, both hips, 2 views, 06/27/2022 Clinical Data: M25.551 - Pain in right hip Comparison: Pelvis and right hip, 04/18/2015. Findings: The pelvis is normal. The left hip shows no erosion, sclerosis, narrowing, cyst formation or fragment ation of the left femoral head. The right hip shows no erosion, sclerosis, narrowing, cyst formation or fragmentation of the right femoral head but there is a small acetabular lip. The soft tissues are normal. XR/XR hip BI m 5V wo/w pel* [id number] Impression: 1. 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 2. Negative pelvis and left hip.
== END 2022-06-27 11:05 | disposition home or self-care (01) ==
PROVIDERS: PCP Family Medicine; Visit Provider Family Medicine
DX: M25.552 Pain in left hip; M16.11 Unilateral primary osteoarthritis, right hip; D3A.8 Other benign neuroendocrine tumors
CPT/HCPCS: 73523; 99214

== ENCOUNTER 2022-08-01 08:46 | Oncology outpatient (recurring) (ONCR) | payer MEDICARE, MEDICAID, SELFPAY ==
[2022-08-01 09:17] LABS: Basophils # 0.1 10^3/uL (0.0-0.1); Basophils % 1.3 %; Eosinophils # 0.2 10^3/uL (0.0-0.8); Eosinophils % 3.2 %; Hematocrit 43.7 % (37.0-47.0); Hemoglobin 14.2 g/dL (11.5-15.3); Lymphocytes # 1.6 10^3/uL (0.8-4.8); Lymphocytes % 25.8 %; Mean Corpuscular HGB Conc 32.5 g/dL (30.0-36.0); Mean Corpuscular Hemoglobin 28.1 pg (28.0-34.0); Mean Corpuscular Volume 86.4 fl (81-99); Mean Platelet Volume 9.1 fL (7.4-10.4); Monocytes # 0.5 10^3/uL (0.2-0.9); Monocytes % 8.1 %; Neutrophils # 3.79 10^3/uL (1.8-7.7); Neutrophils % 61.4 %; Nucleated Red Blood Cells % 0 %; Platelet Count 343 10^3/cmm (130-400); Red Blood Count 5.06 10^6/uL (4.1-5.3); Red Cell Distribution Width 13.7 % (12.1-15.1); White Blood Count 6.2 10^3/uL (4.0-10.0)
[2022-08-01 09:34] LABS: Alanine Aminotransferase 7 U/L (0-33); Albumin Level 4.1 g/dL (3.5-5.2); Alkaline Phosphatase 172 U/L (35-105); Anion Gap 14.5 (5-19); Aspartate Amino Transferase 13 U/L (0-32); Blood Urea Nitrogen 10 mg/dL (6-20); Calcium 9.5 mg/dL (8.5-10.5); Carbon Dioxide 26 mmol/L (22-29); Chloride 104 mmol/L (98-107); Globulin 2.8 g/dL (1.3-4.6); Glomerular Filtration Rate 86.9 mL/min (90-130); Glucose 113 mg/dL (65-115); Osmolality Calculated 290 mOsm/kg (285-295); Potassium 4.5 mmol/L (3.5-5.1); Sodium 140 mmol/L (136-145); Total Bilirubin 0.2 mg/dL (0.15-1.2); Total Protein 6.9 g/dL (6.6-8.7)
== END 2022-08-17 23:59 | disposition home or self-care (01) ==
PROVIDERS: PCP Family Medicine; Visit Provider Internal Medicine Hematology & Oncology
DX: C7A.098 Malignant carcinoid tumors of other sites (principal); C7B.01 Secondary carcinoid tumors of distant lymph nodes; C7B.04 Secondary carcinoid tumors of peritoneum; C7B.09 Secondary carcinoid tumors of other sites; M51.35 Other intervertebral disc degeneration, thoracolumbar region; M48.05 Spinal stenosis, thoracolumbar region; Z79.899 Other long term (current) drug therapy; Z87.891 Personal history of nicotine dependence
CPT/HCPCS: 36415; 80053; 85025; 99214

== ENCOUNTER 2022-10-08 11:08 | Oncology outpatient (recurring) (ONCR) | payer MEDICARE, MEDICAID, SELFPAY ==
[2022-10-08 11:28] VITALS: BP 103/69; PULSE 85; RESP 18; TEMP 36.3; O2SAT 98
[2022-10-08 11:49] LABS: Basophils # 0.1 10^3/uL (0.0-0.1); Basophils % 1.1 %; Eosinophils # 0.3 10^3/uL (0.0-0.8); Eosinophils % 3.1 %; Hematocrit 43.7 % (37.0-47.0); Hemoglobin 14.2 g/dL (11.5-15.3); Lymphocytes # 1.7 10^3/uL (0.8-4.8); Lymphocytes % 20.3 %; Mean Corpuscular HGB Conc 32.5 g/dL (30.0-36.0); Mean Corpuscular Hemoglobin 28.1 pg (28.0-34.0); Mean Corpuscular Volume 86.4 fl (81-99); Mean Platelet Volume 9.4 fL (7.4-10.4); Monocytes # 0.5 10^3/uL (0.2-0.9); Monocytes % 6.2 %; Neutrophils # 5.75 10^3/uL (1.8-7.7); Neutrophils % 69.1 %; Nucleated Red Blood Cells % 0 %; Platelet Count 363 10^3/cmm (130-400); Red Blood Count 5.06 10^6/uL (4.1-5.3); Red Cell Distribution Width 13.2 % (12.1-15.1); White Blood Count 8.3 10^3/uL (4.0-10.0)
[2022-10-08 12:06] LABS: Alanine Aminotransferase 8 U/L (0-33); Albumin Level 3.8 g/dL (3.5-5.2); Alkaline Phosphatase 178 U/L (35-105); Anion Gap 17.2 (5-19); Aspartate Amino Transferase 12 U/L (0-32); Blood Urea Nitrogen 11 mg/dL (6-20); Calcium 9.4 mg/dL (8.5-10.5); Carbon Dioxide 19 mmol/L (22-29); Chloride 100 mmol/L (98-107); Globulin 3.1 g/dL (1.3-4.6); Glomerular Filtration Rate 74.5 mL/min (90-130); Glucose 90 mg/dL (65-115); Osmolality Calculated 273 mOsm/kg (285-295); Potassium 4.2 mmol/L (3.5-5.1); Sodium 132 mmol/L (136-145); Total Bilirubin 0.2 mg/dL (0.15-1.2); Total Protein 6.9 g/dL (6.6-8.7)
[2022-10-13 19:29] LABS: Gastrin 15 pg/mL (< OR = 100)
[2022-10-14 12:29] LABS: Serotonin Whole Blood 132 ng/mL (56-244)
[2022-10-16 10:40] LABS: Chromogranin A LC/MS/MS 725 ng/mL (ADULTS: <311)
== END 2022-10-17 23:59 | disposition home or self-care (01) ==
PROVIDERS: Nurse Practitioner; PCP Family Medicine; Visit Provider Internal Medicine Hematology & Oncology
DX: M16.11 Unilateral primary osteoarthritis, right hip (principal); D3A.8 Other benign neuroendocrine tumors
CPT/HCPCS: 36415; 73502; 80053; 82941; 84260; 85025; 86316; 99203; 99214

== ENCOUNTER 2022-10-27 10:18 | Outpatient (CLI) | payer MEDICARE, MEDICAID, SELFPAY ==
--- NOTE | 2022-10-27 10:15 | MR_ITS ---
WS: [email or web address] EXAMINATION: MR hip RT wo con* [id number] ORDER DATE: 10/27/2022 11:07 AM COMPARISON: None. HISTORY: hip pain CONTRAST: None. TECHNIQUE: Coronal STIR of the Pelvis. Coronal proton density, coronal T1, axial T2 fat sat, axial T1 , sagittal T2 fat sat, and sagittal T1 performed of the hip. After contrast, axial T1 fat sat, coron al T1 fat sat, and sagittal T1 fat sat were performed. FINDINGS: Normal bone marrow signal in the RIGHT hip and acetabulum. Moderate degenerative narrowing bilateral hips. No significant edema. No avascular necrosis. Normal bone marrow signal in the proximal femoral shafts bilaterally. Normal visualized bony sacrum and pelvic bony structures. No insufficiency fractu res. A few sigmoid diverticuli. No RIGHT inguinal lymphadenopathy. No significant joint effusion. Tiny soni unt of edema involving the anterior superior acetabulum. MR/MR hip RT wo con* [id number] IMPRESSION: 1. Moderate degenerative narrowing both hips. No acute fractures or metastatic disease. 2. Normal bone marrow signal in the sacrum and pelvis. 3. No insufficiency fractures. 4. Tiny amount of degenerative edema in the anterior superior RIGHT acetabulum . 5. No other suspicious findings.
== END 2022-10-27 10:19 | disposition home or self-care (01) ==
LOC: RAD 10:25
PROVIDERS: PCP Family Medicine; Visit Provider Specialist
DX: M16.11 Unilateral primary osteoarthritis, right hip (principal); R60.9 Edema, unspecified
CPT/HCPCS: 73721

== ENCOUNTER → 2022-11-10 15:22 | Outpatient (BNVA) | payer MEDICARE, MEDICAID, SELFPAY | PROVIDERS: PCP Family Medicine; Visit Provider Specialist | DX: M25.551 Pain in right hip (principal) | CPT/HCPCS: 99214 ==

== ENCOUNTER 2022-12-17 12:44 | Oncology outpatient (recurring) (ONCR) | payer MEDICARE, MEDICAID, SELFPAY ==
[2022-12-17 12:54] VITALS: BP 103/70; PULSE 96; RESP 16; TEMP 35.8; O2SAT 99
[2022-12-17 13:19] LABS: Basophils # 0.1 10^3/uL (0.0-0.1); Eosinophils # 0.2 10^3/uL (0.0-0.8); Eosinophils % 2.2 %; Hematocrit 44.8 % (36-47); Mean Corpuscular HGB Conc 32.8 g/dL (30-55); Mean Corpuscular Hemoglobin 28.7 pg (27-33); Mean Corpuscular Volume 87.3 fl (85-98); Mean Platelet Volume 9.5 fL (7.4-10.4); Monocytes # 0.6 10^3/uL (0.2-0.9); Neutrophils # 5.33 10^3/uL (1.8-7.7); Neutrophils % 65.4 %; Nucleated Red Blood Cells % 0 %; Platelet Count 395 10^3/cmm (157-399); Red Blood Count 5.13 10^6/uL (3.85-5.65); Red Cell Distribution Width 13.7 % (12.1-15.1); White Blood Count 8.14 10^3/uL (3.29-11.43)
[2022-12-17 13:41] LABS: Alanine Aminotransferase < 5 U/L (0-33); Albumin Level 4.4 g/dL (3.5-5.2); Alkaline Phosphatase 173 U/L (35-105); Anion Gap 13.4 (5-19); Aspartate Amino Transferase 21 U/L (0-32); Blood Urea Nitrogen 12 mg/dL (6-20); Carbon Dioxide 26 mmol/L (22-29); Chloride 103 mmol/L (98-107); Globulin 3.1 g/dL (1.3-4.6); Glomerular Filtration Rate 74.2 mL/min (90-130); Glucose 77 mg/dL (65-115); Osmolality Calculated 285 mOsm/kg (285-295); Potassium 4.4 mmol/L (3.5-5.1); Sodium 138 mmol/L (136-145); Total Bilirubin 0.2 mg/dL (0.15-1.2); Total Protein 7.5 g/dL (6.6-8.7)
[2022-12-22 11:43] LABS: Chromogranin A LC/MS/MS 898 ng/mL (ADULTS: <311)
[2022-12-25 15:19] LABS: Serotonin Whole Blood 150 ng/mL (56-244)
[2022-12-25 15:25] LABS: Gastrin 21 pg/mL (< OR = 100)
== END 2022-12-18 23:59 | disposition home or self-care (01) ==
PROVIDERS: Nurse Practitioner Family; PCP Family Medicine; Visit Provider Internal Medicine Hematology & Oncology
DX: C7A.098 Malignant carcinoid tumors of other sites (principal); C7B.01 Secondary carcinoid tumors of distant lymph nodes; C7B.04 Secondary carcinoid tumors of peritoneum; C7B.09 Secondary carcinoid tumors of other sites; M51.35 Other intervertebral disc degeneration, thoracolumbar region; M48.05 Spinal stenosis, thoracolumbar region; Z79.899 Other long term (current) drug therapy; Z87.891 Personal history of nicotine dependence
CPT/HCPCS: 36415; 80053; 82941; 84260; 85025; 86316; 99214

== ENCOUNTER → 2023-09-14 10:54 | Outpatient (BNVA) | payer BC, SELFPAY | PROVIDERS: PCP Family Medicine; Visit Provider Nurse Practitioner Family | DX: R05.9 Cough, unspecified (principal); J06.9 Acute upper respiratory infection, unspecified | CPT/HCPCS: 87400; 87420; 87426 ==

== ENCOUNTER → 2024-07-06 10:09 | Outpatient (BNVA) | payer MEDICARE, MEDICAID, SELFPAY | PROVIDERS: PCP Family Medicine; Visit Provider Family Medicine | DX: Z87.440 Personal history of urinary (tract) infections (principal) | CPT/HCPCS: 81000; 87086 ==